=== PATIENT | female | born 1985 | race Caucasian/White ===

== ENCOUNTER 2022-05-27 18:20 | Emergency (ER) | payer OTHER ==
[~2022-05-27 18:20] MED LIST: ACET1TAB12 PO; ALBU18HF2 IH; CLOM50TA PO; CODE120S2 PO; CYCL-1 PO; FAMO-128 PO; GLIP5TAB13 PO; METF500T PO; PRENATAL ONE T1 EACH PO; PSEU120T84 PO
== END 2022-05-28 01:44 | disposition left against medical advice (07) ==
LOC: ER 18:22
DX: T18.5XXA Foreign body in anus and rectum, initial encounter (principal); Z53.21 Procedure and treatment not carried out due to patient leaving prior to being seen by health care provider; X58.XXXA Exposure to other specified factors, initial encounter; Y93.9 Activity, unspecified; Y92.9 Unspecified place or not applicable; Y99.9 Unspecified external cause status